=== PATIENT | female | born 1965 | race Caucasian/White ===

== ENCOUNTER 2021-04-27 16:30 | Emergency (ER) | payer OTHER, SELFPAY ==
[2021-04-27 16:30] VITALS: BP 169/101; PULSE 107; RESP 18; TEMP 37; O2SAT 96; BMI 48.2
--- NOTE | 2021-04-27 16:47 | PC.NURSE ---
pt states I knew it was going to happen when I had to bend over twice in 40 min to change her diaper, pt c/o back pain that started at work and has been unrelieved with ibuprofen and increases with movement
[2021-04-27 17:03] VITALS: BP 169/101; PULSE 105; RESP 18; O2SAT 96
--- NOTE | 2021-04-27 17:03 | ED.BACK ---
HPI - Back Pain/Injury General Chief Complaint: Back Pain/Injury Stated Complaint: Right lower back/leg pain x2 days Time Seen by Provider: 04/27/21 16:45 Source: patient Mode of arrival: Ambulatory History of Present Illness HPI Narrative: Patient is a 55-year-old female. 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 She states that she started to have some discomfort in her back specifically on the right side while she was working. She thinks it was because she was lifting patient's in providing patient care. States that evening she is having discomfort in her back. Has tried ibuprofen and heat and ice without much improvement. She has had lower back discomfort in the past. States this is different than her normal lower back pain. Related Data Home Medications Medication Instructions Recorded Confirmed hydrochlorothiazide 12.5 mg capsule 12.5 mg PO QDAY #0 10/27/16 01/02/21 insulin glargine 100 unit/mL 70 unit SQ HS #0 10/27/16 01/02/21 subcutaneous solution (Lantus U-100 Insulin) losartan 25 mg tablet 25 mg PO QDAY #0 10/27/16 01/02/21 metformin 500 mg tablet,extended 1,000 mg PO BID #0 10/27/16 01/02/21 release 24 hr (Glucophage XR) cholecalciferol (vitamin D3) 125 125 mcg PO DAILY 01/02/21 01/02/21 mcg (5,000 unit) capsule duloxetine 60 mg capsule,delayed 60 mg PO DAILY 01/02/21 01/02/21 release gabapentin 300 mg capsule 300 mg PO BEDTIME 01/02/21 01/02/21 Previous Rx's Medication Instructions Recorded celecoxib 200 mg capsule (Celebrex) 200 mg PO DAILY #30 cap 01/02/21 cyclobenzaprine 10 mg tablet 10 mg PO TID PRN #14 tab 04/27/21 Allergies Allergy/AdvReac Type Severity Reaction Status Date / Time codeine [CODEINE] AdvReac Unknown GI UPSET Unverified 01/02/21 08:39 Review of Systems Constitutional Constitutional: Reports system reviewed and no additional complaints, except as documented Musculoskeletal Musculoskeletal: Reports system reviewed and no additional complaints, except as documented and Reports as per HPI Integumentary/Breasts Skin/Breast: Reports system reviewed and no additional complaints, except as documented and Reports as per HPI Neurologic Neurologic: Reports system reviewed and no additional complaints, except as documented Hematologic/Lymphatic On Anticoagulants: No Patient History Medical History Diabetes Facet arthropathy, lumbar Morbid obesity due to excess calories Surgical History H/O hemorrhoidectomy Hx of cholecystectomy Surgical history of tubal ligation Social History Smoking Status: Former smoker Smoking Status: Former smoker Substance Use Type: does not use Exam Initial Vital Signs Initial Vital Signs: Vital Signs Temperature 98.6 F 04/27/21 16:30 Pulse Rate 107 H 04/27/21 16:30 Respiratory Rate 18 04/27/21 16:30 Blood Pressure 169/101 H 04/27/21 16:30 Pulse Oximetry 96 04/27/21 16:30 Resp Effort & Inspection: normal respiratory effort Cardio Rate: regular rate Back/Spine/Pelvis Other: Patient does have tenderness to very light palpation paraspinal right lower thoracic upper lumbar region. Does not radiate around to the right flank. Skin General: no rashes or lesions noted Neuro General: patient alert, patient awake and moves all extremities Course Orders Ordered: Discontinued Medications Cyclobenzaprine HCl (Cyclobenzaprine 10 Mg Tablet) 10 mg PO NOW ONE Stop: 04/27/21 17:05 Cyclobenzaprine HCl (Cyclobenzaprine 10 Mg Prepack) 1 bottle MISC SEEINSTR ONE Stop: 04/27/21 17:05 Vital Signs Vital signs: Vital Signs - 8 hr 04/27/21 16:30 04/27/21 17:03 Temperature 98.6 F Pulse Rate 107 H 105 H Respiratory Rate 18 18 Blood Pressure 169/101 H 169/101 H Pulse Oximetry 96 96 MDM - Back Pain/Injury MDM Narrative Medical decision making narrative: There are no skin changes over the area consistent with zoster. Have low suspicion for lower lumbar spinal stenosis or herniated disc. I do suspect musculoskeletal etiology. Will start the patient on muscle relaxers. She can continue to take ibuprofen. No indication for radiologic studies. She was given return precautions. She expressed understanding and agreement. Discharge Plan Departure Patient Disposition: Home Clinical Impression: Muscle spasm of back Instructions: DI for Back Spasm Activity Restrictions/Additional Instructions: Recommend that you continue all of your medications as directed. You can also continue with the conservative measures such as heat and ice and massage. This discomfort will most likely improve in the next couple days. You can also take ibuprofen. Contact your primary doctor for follow-up. Return to the emergency department for any new or worsening symptoms. Prescriptions: New cyclobenzaprine 10 mg tablet 10 mg PO TID PRN (Reason: muscle spasm) Qty: 14 0RF No Action losartan 25 MG tablet 25 mg PO QDAY Qty: 0 0RF hydrochlorothiazide 12.5 MG capsule 12.5 mg PO QDAY Qty: 0 0RF metformin [Glucophage XR] 500 MG tablet extended release 24 hr 1,000 mg PO BID Qty: 0 0RF insulin glargine [Lantus U-100 Insulin] 100 UNIT/1 ML solution 70 unit SQ HS Qty: 0 0RF cholecalciferol (vitamin D3) 125 mcg (5,000 unit) capsule 125 mcg PO DAILY 0RF gabapentin 300 mg capsule 300 mg PO BEDTIME 0RF duloxetine 60 mg capsule,delayed release(DR/EC) 60 mg PO DAILY 0RF celecoxib [Celebrex] 200 mg capsule 200 mg PO DAILY Qty: 30 2RF Referrals: Maude Pickens DO [Primary Care Provider] - Stand Alone Forms: Work Release Note
[2021-04-27] MEDS: CYCLOBENZAPRINE 10 MG TABLET PO (17:14)
[2021-04-27] MEDS: CYCLOBENZAPRINE 10 MG PREPACK 1 BOTTLE MISC (17:14)
== END 2021-04-27 17:17 | disposition home or self-care (01) ==
PROVIDERS: Emergency Provider Emergency Medicine; PCP Family Medicine
DX: M62.830 Muscle spasm of back (principal); Z87.891 Personal history of nicotine dependence
CPT/HCPCS: 99283

== ENCOUNTER → 2022-01-05 13:26 | Outpatient (CLI) | payer OTHER, MEDICAID, SELFPAY ==
--- NOTE | 2022-01-05 13:28 | DI.RAD.S_ITS ---
PROCEDURE: XR KNEE RT 3V INDICATIONS: Knee pain TECHNIQUE: 3 views of the knee were acquired. COMPARISON: None. FINDINGS: Bones: No fractures or dislocations. No suspicious bony lesions. Severe medial compartment joint space narrowing. Medial and lateral osteophytes. Patellofemoral joint space narrowing with marginal osteophytes present as well. Soft tissues: No joint effusion. No suspicious soft tissue calcifications. Diffuse atherosclerotic vascular calcification noted. IMPRESSION: Severe osteoarthritis Approved by: Jimi Russell M.D. on 01/05/2022 at 13:44
== END ==
PROVIDERS: PCP Nurse Practitioner Family; Referring Provider Nurse Practitioner Critical Care Medicine; Visit Provider Nurse Practitioner Critical Care Medicine
DX: M25.561 Pain in right knee (principal); M17.11 Unilateral primary osteoarthritis, right knee
CPT/HCPCS: 73562